=== PATIENT | male | born 1985 | race Caucasian/White ===

== ENCOUNTER 2016-10-16 08:29 | Day surgery (SDC) | payer BC ==
--- NOTE | ~2016-10-16 | EGD ---
EGD REPORT [facility] [address] [id number] NAME: GARETT LOZA : [birth year] STATUS : [facility] PAT#: [id number] AGE: 31 ADM/REG DATE : 10/16/16 MR#: [id number] REPORT SERV DATE: 10/16/16 DICTATED BY: MOLLY VALDEZ DATE: 10/16/16 REPORT STATUS : Draft TRANSCRIBED BY: [facility] DATE: 10/16/16 Endoscopy Center Patient Name: Garett Loza Date of : 1985 Attending MD: SALLIE VALDEZ MD Procedure Date No Time: 10/16/2016 Procedure: Upper GI endoscopy Indications: Gastro-esophageal reflux disease Referring MD: REMY GALARZA Medicines: See the Anesthesia note for documentation of the administered medications Complications: No immediate complications. Estimated blood loss: Minimal. Procedure: Pre-Anesthesia Assessment: - ASA Grade Assessment: II - A patient with mild systemic disease. - Prior to the procedure, a History and Physical was performed, and patient medications and allergies were reviewed. The patient's tolerance of previous anesthesia was also reviewed. The risks and benefits of the procedure and the sedation options and risks were discussed with the patient. All questions were answered, and informed consent was obtained. Prior Anticoagulants: The patient has taken no previous anticoagulant or antiplatelet agents. After reviewing the risks and benefits, the patient was deemed in satisfactory condition to undergo the procedure. After obtaining informed consent, the endoscope was passed under direct vision. Throughout the procedure, the patient's blood pressure, pulse, and oxygen saturations were monitored continuously. The GIF [id number] was introduced through the mouth, and advanced to the second part of duodenum. The upper GI endoscopy was accomplished without difficulty. The patient tolerated the procedure well. Findings: The examined duodenum was normal. The entire examined stomach was normal. Biopsies were taken with a cold forceps for histology. The cardia and gastric fundus were normal on retroflexion. The lower third of the esophagus was normal. Biopsies were taken with a cold forceps for histology. No other significant abnormalities were identified in a careful examination of the esophagus. EGD REPORT [address] [address] NAME: GARETT LOZA : [birth year] STATUS : [facility] PAT#: [id number] AGE: 31 ADM/REG DATE : 10/16/16 MR#: [id number] REPORT SERV DATE: 10/16/16 DICTATED BY: MOLLY VALDEZ DATE: 10/16/16 REPORT STATUS : Draft TRANSCRIBED BY: [employer] DATE: 10/16/16 Impression: - Normal examined duodenum. - Normal stomach. Biopsied. - Normal lower third of esophagus. Biopsied. Recommendation: - Patient has a contact number available for emergencies. The signs and symptoms of potential delayed complications were discussed with the patient. Return to normal activities tomorrow. Written discharge instructions were provided to the patient. - Regular diet. - Discharge patient to home. - Continue present medications. - Await pathology results. - Return to my office in 4 weeks. Procedure Code(s): --- Professional --- 86335, Esophagogastroduodenoscopy, flexible, transoral; with biopsy, single or multiple Diagnosis Code(s): --- Professional --- K21.9, Gastro-esophageal reflux disease without esophagitis CPT copyright 2013 [employer]. All rights reserved. The codes documented in this report are preliminary and upon tetryl screen operator review may be revised to meet current compliance requirements. SALLIE VALDEZ MD 10/16/2016 10:10 AM This report has been signed electronically. Number of Addenda: 0 Note Initiated On: 10/16/2016 9:40 AM Scope Withdrawal Time 0 hours 0 minutes 0 seconds [address] [id number]
[~2016-10-16 08:29] MED LIST: CELEXA40 MG PO; NEXIUM40 PO
== END 2016-10-16 23:59 | disposition home or self-care (01) ==
LOC: DMU 08:29
PROVIDERS: Internal Medicine Gastroenterology
PROC: 0DB58ZX Excision of Esophagus, Via Natural or Artificial Opening Endoscopic, Diagnostic (ICD-10-PCS; 2016-10-16)
PROC: 0DB68ZX Excision of Stomach, Via Natural or Artificial Opening Endoscopic, Diagnostic (ICD-10-PCS; principal; 2016-10-16 10:00)
DX: K29.00 Acute gastritis without bleeding (principal); K21.0 Gastro-esophageal reflux disease with esophagitis; Z88.1 Allergy status to other antibiotic agents; Z90.89 Acquired absence of other organs
CPT/HCPCS: 88305; 88342